=== PATIENT | female | born 1980 | race Caucasian/White ===

== ENCOUNTER 2016-05-10 07:11 | Emergency (ER) | payer BC, OTHER ==
[2016-05-10 07:25] VITALS: BP 112/71; PULSE 69; TEMP 98.2; BMI 21.7
[2016-05-10 07:28] LABS: URINE APPEARANCE Clear; URINE BILIRUBIN 1+ (NEGATIVE); URINE GLUCOSE (UA) Negative (NEGATIVE); URINE KETONE Negative (NEGATIVE); URINE LEUK ESTERASE Negative (NEGATIVE); URINE NITRITE Negative (NEGATIVE); URINE PROTEIN Negative (NEGATIVE); URINE UROBILINOGEN 0.2 E.U/dl (0.2-1.0)
--- NOTE | 2016-05-10 07:29 | PDOC ---
History of Present Illness - General Chief Complaint: Pain Stated Complaint: RT SIDE BACK/SIDE PAIN Time Seen by Provider: 05/10/16 07:27 - History of Present Illness Initial Comments: 05/10/16 08:10 Chief complaint: Right flank and abdominal pain History of present illness: Patient complains of pain in the right mid back radiating to the right mid abdomen and pelvis. This began 2 days ago. Onset was at rest. No physical activity or exercise, but she has 2 small children who she lifts and carries. The pain is intermittent, sharp, and aggravated by movement and deep breathing. She has frequency of urination, which is chronic, but no acute dysuria, urgency, hesitancy, or hematuria. There is no vaginal bleeding or discharge. Last menses was approximately 2 weeks ago. Menses are regular. No contraceptives as a used. There is no history of significant pelvic pain, ovarian cysts, PID, or STDs. 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 She does admit that she has had mild observation pain in the past, but nothing similar to this. She has irritable bowel disease for which she takes medication intermittently. This has been flaring up and consists of cramping and bloating. Her only present medication, however, his Prozac for mood disorder Review of systems: No fever/chills, URI symptoms, sore throat, cough, chest pain , shortness of breath, nausea, vomiting, diarrhea, constipation, hematemesis, melena, bloody stool. No visual or focal neurologic symptoms, unsteadiness of gait. No urinary tract symptoms or vaginal discharge/bleeding. Remainder systems reviewed and found to be negative Past medical history: As noted above. Mood disorder and Prozac. IBS which is flaring up, however on no medication at present. Appendectomy. No other GI or pelvic disease Social history: Mother of 2, , stable home and family, no tobacco alcohol or nonprescription drugs. Denies unusual anxiety, depression, or stress Family history: Reviewed and noncontributory including early coronary artery disease, metabolic disease including diabetes, GI diseases, ENGINE [employer] CE[employer] TECHNICIAN disease, or cancer. Physical exam: Alert and oriented 3, well-developed well-nourished, appears to be in mild distress secondary to intermittent pain is described above. However, she is relatively cheerful and cooperative. No pallor or icterus. PERRLA, fundi benign, ENT clear. No conjunctival injection Neck supple without bruit mass or nodes Lungs clear with full breath sounds throughout bilaterally. Patient is able to take a deep inspiration without splinting. There is no rib cage or chest wall deformity or point tenderness CV S1 and S2 normal without murmur rub or gallop pulses full and symmetric no JVD or edema no bruits 80 and regular Abdomen nondistended. Normal bowel sounds. Soft without mass or organomegaly. There is mild tenderness to deep palpation in the right mid abdomen and right lower quadrant. There is no guarding or rebound. There is no appreciable CVAT. Neurological intact Extremities no CCE Skin clear, no rash, adequate turgor and wet mucous membranes Impression: Midcycle pain is most likely due to ovulation or ruptured ovarian cyst. Kidney stone is a possibility, although the pain does not appear to be severe enough. Patient has IBS, and this could be a flareup. She had appendectomy. And there is no guarding or rebound suggestive of peritoneal irritation Plan: Urinalysis, test, CBC and chemistries. Trial of anti- inflammatory. Further evaluation depending on results. [employer] as scheduled. Past History - Past Medical History Allergies/Adverse Reactions: Allergies Allergy/AdvReac Type Severity Reaction Status Date / Time Penicillins Allergy Hives Verified 05/10/16 07:13 Home Medications: Ambulatory Orders Fluoxetine HCl [Prozac] 20 mg PO DAILY 05/10/16 Naproxen [Naprosyn -] 500 mg PO BID PRN #15 tablet 05/10/16 GI Disorders: Yes (IBS) Psychiatric Problems: Yes (PMS,POST ) Thyroid Disease: Yes (HYPO) - Surgical History Appendectomy: Yes - Psycho/Social/Smoking Cessation Hx Anxiety: No Suicidal Ideation: No Smoking History: Never smoked Have you smoked in the past 12 months: No Information on smoking cessation initiated: No Hx Alcohol Use: Yes Drug/Substance Use Hx: No Substance Use Type: Alcohol *Physical Exam - Vital Signs Last Vital Signs Temp Pulse Resp BP Pulse Ox 98.2 F 69 20 112/71 97 05/10/16 07:12 05/10/16 07:12 05/10/16 07:12 05/10/16 07:12 05/10/16 07:12 ED Treatment Course - LABORATORY CBC & Chemistry Diagram: 05/10/16 08:10 05/10/16 08:10 Medical Decision Making - Medical Decision Making 05/10/16 09:42 CBC and chemistries are normal. test is negative. Urinalysis shows only 1+ blood. Gallstones, kidney stones, mittelschmerz, gastroenteritis, and musculoskeletal pain remain possibilities. Ultrasound ordered. 05/10/16 12:29 Ultrasound examination of the gallbladder, kidneys, ureters, bladder, and pelvic structures negative. Patient has experienced considerable pain relief with medication. She is ambulatory and in no significant pain or other distress upon discharge to follow-up as directed. *DC/Admit/Observation/Transfer Diagnosis at time of Disposition: Abdominal pain Qualifiers: Abdominal location: upper abdomen, unspecified Qualified Code(s): R10.10 - Upper abdominal pain, unspecified - Discharge Dispostion Disposition: HOME Condition at time of disposition: Improved Admit: No - Prescriptions Prescriptions: Naproxen [Naprosyn -] 500 mg PO BID PRN #15 tablet PRN Reason: Pain - Patient Instructions Printed Discharge Instructions: DI for Abdominal Pain-Adult Additional Instructions: Rest, fluids, and Naprosyn as directed. Return to ER if pain worsens or if further symptoms develop Otherwise follow-up with your primary physician in 2 days.
[2016-05-10 07:30] LABS: URINE COLOR YELLOW
[2016-05-10 07:31] LABS: URINE BLOOD 1+ (NEGATIVE)
[2016-05-10 08:21] LABS: MCH 30.5 pg (25.7-33.7); MCHC 34.8 g/dl (32.0-36.0); MEAN CELL VOLUME 87.7 fl (80-96); MEAN PLT VOLUME 8.8 fl (7.5-11.1); PLATELET COUNT 137 K/MM3 (134-434); RDW 11.9 % (11.6-15.6); WHITE BLOOD COUNT 5.9 K/mm3 (4.0-10.0)
[2016-05-10] MEDS ORDERED: NAPROXEN 375 MG TABLET (FP) PO ONE (08:39)
[2016-05-10 08:42] LABS: ALBUMIN 4.2 g/dl (3.5-5.0); ALK PHOS 48 U/L (32-92); ANION GAP 1 (8-16); BILIRUBIN,TOTAL 0.7 mg/dl (0.2-1.0); CALCIUM 8.9 mg/dl (8.4-10.2); CO2 26 mmol/L (22-28); CREATININE 0.7 mg/dl (0.6-1.3); GLUCOSE,RANDOM 94 mg/dl (74-106); SGOT/AST 14 U/L (10-42); SGPT/ALT 11 U/L (10-40); TOT PROT 6.4 g/dl (6.4-8.3)
[2016-05-10] MEDS ORDERED: NAPROXEN 375 MG TABLET (FP) ONE (08:48)
== END 2016-05-10 12:35 | disposition home or self-care (01) ==
LOC: FER 07:11
DX: R10.10 Upper abdominal pain, unspecified (principal); E03.9 Hypothyroidism, unspecified; N94.3 Premenstrual tension syndrome; K58.9 Irritable bowel syndrome, unspecified
CPT/HCPCS: 36415; 76705-TC; 76775-TC; 76856-TC; 80053; 81003; 84703; 85027; 99283-25